=== PATIENT | male | born 1975 ===

== ENCOUNTER 2018-08-16 12:25 | Emergency (ER) | payer OTHER ==
--- NOTE | 2018-08-16 13:18 | ED PDOC ---
HPI: Headache Time Seen by Provider: 08/16/18 12:40 Chief Complaint (Nursing): Headache Chief Complaint (Provider): Headache History Per: Patient History/Exam Limitations: no limitations Onset/Duration Of Symptoms: Days (x1 week) Additional Complaint(s): Patient is a 43 y/o male who presents to the ED complaining of headache with associated neck pain, onset x1 week ago. Patient reports that last week something fell directly on the top of his head and since then he has been having headaches and neck pain. Patient denies taking any medication for the pain. Patient reports that he has never had similar such symptoms in the past and has not had previous neck pain. He has no other medical problems or complaints. Past Medical History Reviewed: Historical Data, Nursing Documentation, Vital Signs Vital Signs: Last Vital Signs Temp 98.6 F 08/16/18 12:32 Pulse 63 08/16/18 12:32 Resp 16 08/16/18 12:32 BP 143/91 H 08/16/18 12:32 Pulse Ox 99 08/16/18 12:32 - Medical History PMH: No Chronic Diseases - Surgical History Surgical History: No Surg Hx - Family History Family History: States: Unknown Family Hx - Home Medications Home Medications: Ambulatory Orders Medication Instructions Recorded traMADol [Ultram] 50 mg PO Q6H PRN #15 tab 08/16/18 - Allergies Allergies/Adverse Reactions: Allergies Allergy/AdvReac Type Severity Reaction Status Date / Time No Known Allergies Allergy Verified 08/16/18 12:32 Review of Systems ROS Statement: Except As Marked, All Systems Reviewed And Found Negative Constitutional: Negative for: Fever Musculoskeletal: Positive for: Neck Pain Neurological: Positive for: Headache Physical Exam - Reviewed Nursing Documentation Reviewed: Yes Vital Signs Reviewed: Yes - Physical Exam Appears: Positive for: Non-toxic, No Acute Distress Head Exam: Positive for: ATRAUMATIC, NORMOCEPHALIC Skin: Positive for: Normal Color, Warm, DRY Eye Exam: Positive for: EOMI, Normal appearance, PERRL ENT: Positive for: Normal ENT Inspection Neck: Positive for: Painless ROM, Supple, Limited ROM. Negative for: Decreased ROM Cardiovascular/Chest: Positive for: Regular Rate, Rhythm. Negative for: Murmur, Bradycardia, Tachycardia Respiratory: Positive for: Normal Breath Sounds. Negative for: Respiratory Distress Back: Positive for: Vertebral Tenderness (C-spine tenderness; C2-C4) Extremity: Positive for: Normal ROM. Negative for: Pedal Edema, Deformity Neurologic/Psych: Positive for: Alert, hot baller II-XII, Oriented, Mood/Affect, Cerebellar Tests, Gait. Negative for: Motor/Sensory Deficits, Aphasia, Facial Droop - ECG O2 Sat by Pulse Oximetry: 99 (RA) Pulse Ox Interpretation: Normal Medical Decision Making Medical Decision Making: Time: 13:14 Initial Impression: headaches and neck pain Initial Plan: --CT cervical spine --CT head w/o contrast --Tylenol 650 mg PO Time: [address] IMPRESSION: No acute intracranial abnormalities. No significant findings to account for the clinical presentation. Time: [address] IMPRESSION: No acute findings. Evidence of old fracture spinous process C6. Clinical history indicates patient sustained trauma to the top of the head. My discussion with the physician timber management assistant at the time of this interpretation indicates that there is no pain or focal finding on physical examination retro bulbar to the lower cervical spine. Communication of results: I discussed these findings with the physician timber management assistant as well as findings on physical examination/presentation with Rebekah John at 14:27 Scribe Attestation: Documented by Mann Reddy, acting as a scribe for Rebekah Montes PA-C. Provider Scribe Attestation: All medical record entries made by the Scribe were at my direction and personally dictated by me. I have reviewed the chart and agree that the record accurately reflects my personal performance of the history, physical exam, medical decision making, and the department course for this patient. I have also personally directed, reviewed, and agree with the discharge instructions and disposition. Disposition - Clinical Impression Clinical Impression: Neck pain, Headache, Head injury, Spinous process fracture - Disposition Referrals: Med Nguyen MD [Staff Provider] - Disposition Time: 15:23 Condition: STABLE Prescriptions: traMADol [Ultram] 50 mg PO Q6H PRN #15 tab PRN Reason: Pain Instructions: Generalized Neck Pain Forms: [email or web address] (Colombian)
--- NOTE | 2018-08-16 13:57 | CT ---
Date of service: 08/16/2018 PROCEDURE: CT HEAD WITHOUT CONTRAST. HISTORY: headaches after head injury COMPARISON: None available. TECHNIQUE: Axial computed tomography images were obtained through the head/brain without intravenous contrast. Supplemental Coronal and Sagittal projections created and reviewed. Radiation dose: Total exam DLP = 893.72 mGy-cm. This CT exam was performed using one or more of the following dose reduction techniques: Automated exposure control, adjustment of the mA and/or kV according to patient size, and/or use of iterative reconstruction technique. FINDINGS: HEMORRHAGE: No intracranial hemorrhage. BRAIN: No mass effect or edema. No atrophy or chronic microvascular ischemic changes. VENTRICLES: Unremarkable. No hydrocephalus. CALVARIUM: Unremarkable. PARANASAL SINUSES: Unremarkable as visualized. No significant inflammatory changes. MASTOID AIR CELLS: Unremarkable as visualized. No inflammatory changes. OTHER FINDINGS: None. IMPRESSION: No acute intracranial abnormalities. No significant findings to account for the clinical presentation.
--- NOTE | 2018-08-16 14:32 | CT ---
Date of service: 08/16/2018 PROCEDURE: CT Cervical Spine without contrast HISTORY: pain on palpation COMPARISON: None available. TECHNIQUE: Axial computed tomography images were obtained of the cervical spine without the use of intravenous contrast. Coronal and sagittal reformatted images were created and reviewed. Radiation dose: Total exam DLP = 346.62 mGy-cm. This CT exam was performed using one or more of the following dose reduction techniques: Automated exposure control, adjustment of the mA and/or kV according to patient size, and/or use of iterative reconstruction technique. FINDINGS: VERTEBRAE: Fracture of the spinous process C6 posterior element. This appears to be an old fracture. DISCS/SPINAL CANAL/NEURAL FORAMINA: No significant central canal or neural foraminal stenosis. Discs heights are grossly preserved. PARASPINAL SOFT TISSUES: Unremarkable. OTHER FINDINGS: None. IMPRESSION: No acute findings. Evidence of old fracture spinous process C6. Clinical history indicates patient sustained trauma to the top of the head. My discussion with the physician records management assistant at the time of this interpretation indicates that there is no pain or focal finding on physical examination retro bulbar to the lower cervical spine. Communication of results: I discussed these findings with the physician records management assistant as well as findings on physical examination/presentation with Rebekah John at 14:27
[2018-08-16 15:51] VITALS: BP 136/80; PULSE 73; RESP 18; TEMP 98.5; O2SAT 97
== END 2018-08-16 15:45 | disposition home or self-care (01) ==
LOC: H.ER 12:25
DX: S09.90XA Unspecified injury of head, initial encounter (principal); S12.500A Unspecified displaced fracture of sixth cervical vertebra, initial encounter for closed fracture; W22.8XXA Striking against or struck by other objects, initial encounter; Y92.89 Other specified places as the place of occurrence of the external cause

== ENCOUNTER 2019-01-30 10:33 | Emergency (ER) | payer OTHER ==
--- NOTE | 2019-01-30 12:07 | ED PDOC ---
HPI: Chest Pain Time Seen by Provider: 01/30/19 11:00 Chief Complaint (Nursing): Chest Pain Chief Complaint (Provider): Chest Pain History Per: Patient History/Exam Limitations: no limitations Onset/Duration Of Symptoms: Days (x2) Current Symptoms Are (Timing): Still Present Additional Complaint(s): Patient is a 43 y/o male with left-sided chest pain ongoing for the past two days. Patient states the pain radiates to her left upper back and causes left- sided neck and back of head pain. Patient describes the pain as a pressure. Patient claims the pain is exacerbated when moving. Patient reports this is the first time he has ever experienced these symptoms. PCP: None Provided Past Medical History Reviewed: Historical Data, Nursing Documentation, Vital Signs - Medical History PMH: No Chronic Diseases Denies: Deep Vein Thrombosis, Pulmonary Embolism, Chronic Kidney Disease - Surgical History Other surgeries: Spinal Surgery - Family History Family History: Denies: MS, CAD - Social History Alcohol: Occasional - Home Medications Home Medications: Ambulatory Orders Medication Instructions Recorded traMADol [Ultram] 50 mg PO Q6H PRN #15 tab 08/16/18 - Allergies Allergies/Adverse Reactions: Allergies Allergy/AdvReac Type Severity Reaction Status Date / Time No Known Allergies Allergy Verified 08/16/18 12:32 JOSEPH Risk Score for UA/NSTEMI - JOSEPH Risk Score Age > 64: NO 3 or more CAD Risk Factors: NO Known CAD (Stenosis greater than 50%): NO Aspirin use in past 7 days: NO Severe Angina: NO EKG ST changes greater than 0.5mm: NO Positive Cardiac Marker: NO JOSEPH Score: 0 Risk %: 5% Wells Criteria for PE - Wells Criteria for Pulmonary Embolism Clinical Signs and Symptoms of DVT: No P.E is #1 Diagnosis, or Equally Likely: No Heart Rate >100: No Immobilization at least 3 days;Surgery previous 4 weeks: No Previous, objectively diagnosed PE or DVT: No Hemoptysis: No Malignancy w/treatment within 6 months, or palliative: No Total Score: 0 Review of Systems ROS Statement: Except As Marked, All Systems Reviewed And Found Negative Cardiovascular: Positive for: Chest Pain (left; pressure) Musculoskeletal: Positive for: Back Pain (left, upper ), Other (left-sided neck and back of head pain) Physical Exam - Reviewed Nursing Documentation Reviewed: Yes Vital Signs Reviewed: Yes - Physical Exam Appears: Positive for: Non-toxic, No Acute Distress Head Exam: Positive for: ATRAUMATIC, NORMAL INSPECTION, NORMOCEPHALIC Skin: Positive for: Normal Color, Warm, Dry Eye Exam: Positive for: EOMI, Normal appearance, PERRL Neck: Positive for: Normal, Painless ROM, Supple Cardiovascular/Chest: Positive for: Regular Rate, Rhythm. Negative for: Murmur Respiratory: Positive for: Normal Breath Sounds. Negative for: Respiratory Distress Gastrointestinal/Abdominal: Positive for: Normal Exam, Soft. Negative for: Tenderness Back: Positive for: Normal Inspection. Negative for: L CVA Tenderness, R CVA Tenderness, Vertebral Tenderness Extremity: Positive for: Normal ROM. Negative for: Pedal Edema, Deformity Neurological/Psych: Positive for: Alert, Oriented - Laboratory Results Result Diagrams: 01/30/19 12:20 01/30/19 12:20 - ECG ECG Rhythm: Positive for: Normal QRS, Normal ST Segment, Sinus Rhythm Rate: 74 Medical Decision Making Medical Decision Making: Time: 1205 Impression: Left Chest Pain worse with moevment, no cardiac or PE risk factors Plan: CMP Troponin I CBC CXR Motrin 600 mg PO Time: 1414 FINDINGS: LINES AND TUBES: None. LUNG AND PLEURA: The lungs are well inflated and clear. There is subsegmental atelectasis in both lung bases. No pleural effusion or pneumothorax. HEART AND MEDIASTINUM: The heart is not enlarged. No aortic atherosclerotic calcifications present. The hilar and mediastinal contours are within normal limits. SKELETAL STRUCTURES: The bony structures are within normal limits for the patient's age. VISUALIZED UPPER ABDOMEN: Normal. OTHER FINDINGS: None. IMPRESSION: No active pulmonary disease. Time: 1535 --Troponin x2 is negative. ekg and cxr negative. pt symptom free throughout ER stay. Patient is medically cleared for discharge home. Scribe Attestation: Documented by Domenico Valenzuela, acting as a scribe for Jay Turpin MD. Provider Scribe Attestation: All medical record entries made by the Scribe were at my direction and personally dictated by me. I have reviewed the chart and agree that the record accurately reflects my personal performance of the history, physical exam, medical decision making, and the department course for this patient. I have also personally directed, reviewed, and agree with the discharge instructions and disposition. Disposition - Clinical Impression Clinical Impression: Chest wall pain - Patient ED Disposition Is Patient to be Admitted: No Counseled Patient/Family Regarding: Studies Performed, Diagnosis, Need For Followup - Disposition Referrals: [facility] [Outside] [facility] [Outside] Disposition: Routine/Home Disposition Time: 15:35 Condition: IMPROVED Additional Instructions: follow up with clinic in 2 days return to the ED with any worsening or concerning symptoms Instructions: Chest Pain Forms: [facility] (Welsh)
[2019-01-30 12:36] LABS: BASO % 0.4 % (0.0-2.0); EOS % 0.9 % (0.0-4.0); HEMOGLOBIN 14.8 g/dL (12.0-18.0); LYMPH # 1.4 K/uL (1.0-4.3); LYMPH % 32.9 % (20.0-40.0); MEAN CELL VOLUME 93.6 fl (80.0-94.0); MEAN CORPUSCULAR HEMOGLOBIN 31.4 pg (27.0-31.0); MEAN CORPUSCULAR HGB CONC 33.6 g/dL (33.0-37.0); MEAN PLATELET VOLUME 9.3 fl (7.2-11.7); MONO # 0.2 K/uL (0.0-0.8); MONO % 4.7 % (0.0-10.0); NEUT # 2.5 K/uL (1.8-7.0); NEUT % 61.1 % (50.0-75.0); NRBC % 0.1 % (0.0-0.0); RBC 4.71 Mil/uL (4.40-5.90); RED CELL DISTRIBUTION WIDTH 12.5 % (11.5-14.5); WHITE BLOOD COUNT 4.2 K/uL (4.8-10.8)
[2019-01-30 12:53] LABS: ALB/GLOB RATIO 1.4 (1.0-2.1); ALBUMIN 4.3 g/dL (3.5-5.0); ALT/SGPT 33 U/L (21-72); AST/SGOT 22 U/L (17-59); BLOOD UREA NITROGEN 14 mg/dl (9-20); CALCIUM 9.2 mg/dL (8.4-10.2); GFR NON-AFRICAN AMERICAN > 60
[2019-01-30 14:19] VITALS: RESP 18; O2SAT 100
--- NOTE | 2019-01-30 14:25 | RAD ---
Date of service: 01/30/2019 HISTORY: Chest pain COMPARISON: No prior. TECHNIQUE: Chest PA and lateral FINDINGS: LINES AND TUBES: None. LUNG AND PLEURA: The lungs are well inflated and clear. There is subsegmental atelectasis in both lung bases. No pleural effusion or pneumothorax. HEART AND MEDIASTINUM: The heart is not enlarged. No aortic atherosclerotic calcifications present. The hilar and mediastinal contours are within normal limits. SKELETAL STRUCTURES: The bony structures are within normal limits for the patient's age. VISUALIZED UPPER ABDOMEN: Normal. OTHER FINDINGS: None. IMPRESSION: No active pulmonary disease.
[2019-01-30 16:32] VITALS: BP 105/66; TEMP 98.9
[2019-01-31 10:16] VITALS: PULSE 74
== END 2019-01-30 16:29 | disposition home or self-care (01) ==
LOC: H.ER 10:33
DX: R07.89 Other chest pain (principal)